=== PATIENT | female | born 1940 | race Two or more races ===

== ENCOUNTER 2020-11-01 16:35 | Emergency (ER) | payer MEDICARE, OTHER ==
[~2020-11-01] VITALS: Ht 162.6 cm; Wt 79.4 kg
[2020-11-01 18:49] VITALS: BP 148/59
[2020-11-01] MEDS ORDERED: ONDANSETRON ODT 4 MG TAB PO ONE ×2 (20:15→20:30)
[2020-11-01] MEDS ORDERED: ACETAMINOPHEN/CODEINE#3 (300/30mg) TAB PO ONE ×2 (20:15→20:30)
== END 2020-11-01 21:06 | disposition home or self-care (01) ==
LOC: ER 16:35
DX: S76.012A Strain of muscle, fascia and tendon of left hip, initial encounter (principal); M16.12 Unilateral primary osteoarthritis, left hip; I10 Essential (primary) hypertension; E78.5 Hyperlipidemia, unspecified; Z90.49 Acquired absence of other specified parts of digestive tract; M85.88 Other specified disorders of bone density and structure, other site; X58.XXXA Exposure to other specified factors, initial encounter; Y93.89 Activity, other specified; Y92.89 Other specified places as the place of occurrence of the external cause; Y99.8 Other external cause status
CPT/HCPCS: 73502; 99283; Q0162

== ENCOUNTER 2021-10-17 16:25 | Inpatient (IN) | payer MEDICARE, OTHER ==
[~2021-10-17] VITALS: Ht 162.6 cm; Wt 73.0 kg
[2021-10-18 00:38] LABS: Basophils # (auto) 0 10 ^3/uL (0-0.2); Basophils % (auto) 0.1 % (0.0-2.0); Eosinophils # (auto) 0 10 ^3/uL (0-0.8); Eosinophils % (auto) 0.1 % (0.0-7.0); Hematocrit 35.6 % (36.0-46.0); Hemoglobin 11.6 g/dL (12.2-16.2); Lymphocytes # (auto) 4.4 10 ^3/uL (0.4-5.4); Lymphocytes % (auto) 31.8 % (10.0-50.0); Mean Corpuscular Hemoglobin 29.5 pg (28.0-32.0); Mean Corpuscular Hgb Conc. 32.6 g/dL (32.0-36.0); Mean Corpuscular Volume 90.5 fL (80.0-100.0); Monocytes # (auto) 1.5 10 ^3/uL (0-1.3); Monocytes % (auto) 11.1 % (0.0-12.0); Neutrophils # (auto) 7.8 10 ^3/uL (1.6-8.6); Neutrophils % (auto) 56.9 % (37.0-80.0); Potassium 4.2 mmol/L (3.5-5.1); Red Blood Cells 3.94 10^6/uL (4.0-5.20); Red Cell Distribution Width 14.2 % (11.8-14.3); White Blood Cell 13.8 10^3/uL (4.4-10.8)
[2021-10-18 00:43] LABS: BUN/Creatinine Ratio 16.7; Calcium 8.2 mg/dL (8.5-10.1)
[2021-10-18 00:48] LABS: Bilirubin, Total 0.6 mg/dL (0.2-1.0)
[2021-10-18] MEDS ORDERED: ONDANSETRON HCL 4 MG/2 ML VIAL IV PRN (06:00)
[2021-10-18] MEDS ORDERED: NITROGLYCERIN 0.4 MG SL TAB SL PRN (06:00)
[2021-10-18] MEDS ORDERED: MORPHINE SULFATE INJECTION 2 MG/ML SYRG IV PRN (06:00)
[2021-10-18] MEDS ORDERED: TEMAZEPAM 15 MG CAP PO PRN (06:00)
[2021-10-18] MEDS ORDERED: ACETAMINOPHEN 500 MG TAB PO PRN (06:00)
[2021-10-18] MEDS: cefTRIAXone 1GM/50ML D5W 50 ML IV SCH (07:22)
[2021-10-18] MEDS: AZITHROMYCIN 500MG/ 250ML 250 ML IV SCH (07:58)
[2021-10-18 08:04] LABS: INR 1.1 (0.9-1.15)
[2021-10-18 08:27] LABS: Magnesium 2.3 mg/dL (1.6-2.6)
[2021-10-18 09:04] LABS: CRP High Sensitivity 16.3 mg/dL (< 0.3)
[2021-10-18] MEDS: ALBUTEROL SULF HFA 90MCG INH 200DOSE IN PRN ×2 (09:06→21:02)
[2021-10-18] MEDS: BUDESONIDE (INHALATION) 180 MCG IH IN SCH ×2 (09:07→21:02)
[2021-10-18] MEDS: ZINC SULFATE 220mg CAP or TAB PO SCH (10:52)
[2021-10-18] MEDS: DexAMETHasone SOD PHOS 10MG/1ML VIAL INJ IV SCH (10:52)
[2021-10-18] MEDS: amLODIPine BESYLATE 5 MG TAB PO SCH (10:52)
[2021-10-18] MEDS: PANTOPRAZOLE 40 MG TAB PO SCH (10:53)
[2021-10-18] MEDS: METOPROLOL SUCCINATE XL 50 MG TAB PO SCH (10:53)
[2021-10-18] MEDS: CHOLECALCIFEROL (VITD3) 2,000 UNIT CAP/TAB PO SCH (10:54)
[2021-10-18] MEDS: ASCORBIC ACID 1,000 MG TAB PO SCH (10:54)
[2021-10-18] MEDS: ENOXAPARIN SOD 30 MG/0.3 ML SYRINGE SC SCH (10:54)
[2021-10-18] MEDS: SODIUM CHLORIDE 0.9% 1,000 ML IV SCH (14:45)
[2021-10-18] MEDS: ATORVASTATIN 20 MG TAB PO SCH (22:14)
[2021-10-19 00:45] VITALS: BP 135/60
[2021-10-19 05:00] VITALS: BP 135/50
[2021-10-19] MEDS ORDERED: APIX5TAB PO (05:21)
[2021-10-19] MEDS ORDERED: OMEP-434 PO (05:21)
[2021-10-19] MEDS ORDERED: LOSA-39 PO (05:21)
[2021-10-19] MEDS ORDERED: CITA-77 PO (05:22)
[2021-10-19] MEDS ORDERED: ALEN35TA18 PO (05:22)
[2021-10-19] MEDS ORDERED: ATOR40TA52 PO (05:22)
[2021-10-19] MEDS ORDERED: AMLO-489 PO (05:22)
[2021-10-19] MEDS ORDERED: METO-159 PO (05:22)
[2021-10-19 05:46] LABS: Basophils # (auto) 0 10 ^3/uL (0-0.2); Basophils % (auto) 0.3 % (0.0-2.0); Eosinophils # (auto) 0 10 ^3/uL (0-0.8); Hemoglobin 9.6 g/dL (12.2-16.2); Lymphocytes % (auto) 16.9 % (10.0-50.0); Mean Corpuscular Hemoglobin 30.3 pg (28.0-32.0); Mean Corpuscular Hgb Conc. 34.3 g/dL (32.0-36.0); Mean Corpuscular Volume 88.3 fL (80.0-100.0); Monocytes # (auto) 0.7 10 ^3/uL (0-1.3); Monocytes % (auto) 12.3 % (0.0-12.0); Neutrophils # (auto) 4.1 10 ^3/uL (1.6-8.6); Neutrophils % (auto) 70.5 % (37.0-80.0); Nucleated Red Blood Cells % 0.1 %; Red Blood Cells 3.17 10^6/uL (4.0-5.20); Red Cell Distribution Width 14.3 % (11.8-14.3); White Blood Cell 5.8 10^3/uL (4.4-10.8)
[2021-10-19 06:38] LABS: Potassium 4.9 mmol/L (3.5-5.1)
[2021-10-19 06:46] LABS: Albumin 2.5 g/dL (3.4-5.0); BUN/Creatinine Ratio 29.8; Bilirubin, Total 0.4 mg/dL (0.2-1.0); Calcium 7.6 mg/dL (8.5-10.1); Total Protein 5.1 g/dL (6.4-8.2)
[2021-10-19 09:00] VITALS: BP 147/54
[2021-10-19] MEDS: cefTRIAXone 1GM/50ML D5W 50 ML IV SCH (09:23)
[2021-10-19] MEDS: ENOXAPARIN SOD 30 MG/0.3 ML SYRINGE SC SCH (09:24)
[2021-10-19] MEDS: PANTOPRAZOLE 40 MG TAB PO SCH (09:24)
[2021-10-19] MEDS: ASCORBIC ACID 1,000 MG TAB PO SCH (09:24)
[2021-10-19] MEDS: DexAMETHasone SOD PHOS 10MG/1ML VIAL INJ IV SCH (09:24)
[2021-10-19] MEDS: AZITHROMYCIN 500MG/ 250ML 250 ML IV SCH (09:25)
[2021-10-19] MEDS: ZINC SULFATE 220mg CAP or TAB PO SCH (09:25)
[2021-10-19] MEDS: CHOLECALCIFEROL (VITD3) 2,000 UNIT CAP/TAB PO SCH (09:25)
[2021-10-19] MEDS: amLODIPine BESYLATE 5 MG TAB PO SCH (09:26)
[2021-10-19] MEDS: METOPROLOL SUCCINATE XL 50 MG TAB PO SCH (09:26)
[2021-10-19] MEDS: BUDESONIDE (INHALATION) 180 MCG IH IN SCH ×2 (10:00→20:12)
[2021-10-19] MEDS: SODIUM CHLORIDE 0.9% 1,000 ML IV SCH (10:15)
[2021-10-19] MEDS: ALBUTEROL SULF HFA 90MCG INH 200DOSE IN PRN ×2 (11:10→20:12)
[2021-10-19 13:00] VITALS: BP 133/56
[2021-10-19] MEDS ORDERED: REMDESIVIR PER PHARMACY 0 ML IV SCH (15:00)
[2021-10-19 17:00] VITALS: BP 137/54
[2021-10-19] MEDS ORDERED: REMDESIVIR 200 MG in NS 210ml LOADING DOSE ADULT IV ONE (17:00)
[2021-10-19] MEDS: ATORVASTATIN 20 MG TAB PO SCH (21:15)
[2021-10-19 22:18] VITALS: BP 106/55
[2021-10-20 04:53] VITALS: BP 125/47
[2021-10-20] MEDS: SODIUM CHLORIDE 0.9% 1,000 ML IV SCH (06:15)
[2021-10-20 08:41] LABS: Potassium 4.6 mmol/L (3.5-5.1)
[2021-10-20 09:00] VITALS: BP 123/92
[2021-10-20 09:18] LABS: Albumin 2.3 g/dL (3.4-5.0); BUN/Creatinine Ratio 33.6; Bilirubin, Total 0.3 mg/dL (0.2-1.0); Calcium 7.8 mg/dL (8.5-10.1); Total Protein 5.3 g/dL (6.4-8.2)
[2021-10-20] MEDS: BUDESONIDE (INHALATION) 180 MCG IH IN SCH ×2 (10:09→20:16)
[2021-10-20] MEDS: ALBUTEROL SULF HFA 90MCG INH 200DOSE IN PRN ×2 (10:09→20:16)
[2021-10-20] MEDS: cefTRIAXone 1GM/50ML D5W 50 ML IV SCH (10:13)
[2021-10-20] MEDS: AZITHROMYCIN 500MG/ 250ML 250 ML IV SCH (10:13)
[2021-10-20] MEDS: ZINC SULFATE 220mg CAP or TAB PO SCH (10:13)
[2021-10-20] MEDS: ENOXAPARIN SOD 30 MG/0.3 ML SYRINGE SC SCH (10:14)
[2021-10-20] MEDS: PANTOPRAZOLE 40 MG TAB PO SCH (10:14)
[2021-10-20] MEDS: CHOLECALCIFEROL (VITD3) 2,000 UNIT CAP/TAB PO SCH (10:14)
[2021-10-20] MEDS: ASCORBIC ACID 1,000 MG TAB PO SCH (10:14)
[2021-10-20] MEDS: DexAMETHasone SOD PHOS 10MG/1ML VIAL INJ IV SCH (10:15)
[2021-10-20] MEDS: amLODIPine BESYLATE 5 MG TAB PO SCH (10:15)
[2021-10-20] MEDS: METOPROLOL SUCCINATE XL 50 MG TAB PO SCH (10:16)
[2021-10-20 13:00] VITALS: BP 150/52
[2021-10-20 14:45] VITALS: BP 123/92
[2021-10-20] MEDS ORDERED: REMDESIVIR 100mg 100 MG in SODIUM CHL 0.9% 230 ML IV SCH (15:00)
[2021-10-20 17:00] VITALS: BP 143/51
[2021-10-20] MEDS: ATORVASTATIN 20 MG TAB PO SCH (20:20)
[2021-10-20 22:00] VITALS: BP 144/73
[2021-10-21] MEDS: SODIUM CHLORIDE 0.9% 1,000 ML IV SCH ×2 (02:14→22:15)
[2021-10-21 04:44] VITALS: BP 129/57
[2021-10-21 06:58] LABS: Albumin 2.2 g/dL (3.4-5.0); Potassium 4.8 mmol/L (3.5-5.1)
[2021-10-21 07:01] LABS: BUN/Creatinine Ratio 33.1; Calcium 8.1 mg/dL (8.5-10.1)
[2021-10-21 07:12] LABS: Bilirubin, Total 0.3 mg/dL (0.2-1.0); Total Protein 4.6 g/dL (6.4-8.2)
[2021-10-21] MEDS: ALBUTEROL SULF HFA 90MCG INH 200DOSE IN PRN ×2 (08:03→20:58)
[2021-10-21] MEDS: BUDESONIDE (INHALATION) 180 MCG IH IN SCH ×2 (08:03→20:58)
[2021-10-21 09:00] VITALS: BP 166/73
[2021-10-21] MEDS: cefTRIAXone 1GM/50ML D5W 50 ML IV SCH (09:00)
[2021-10-21] MEDS: amLODIPine BESYLATE 5 MG TAB PO SCH (09:45)
[2021-10-21] MEDS: ZINC SULFATE 220mg CAP or TAB PO SCH (09:45)
[2021-10-21] MEDS: DexAMETHasone SOD PHOS 10MG/1ML VIAL INJ IV SCH (09:45)
[2021-10-21] MEDS: METOPROLOL SUCCINATE XL 50 MG TAB PO SCH (09:46)
[2021-10-21] MEDS: CHOLECALCIFEROL (VITD3) 2,000 UNIT CAP/TAB PO SCH (09:46)
[2021-10-21] MEDS: PANTOPRAZOLE 40 MG TAB PO SCH (09:46)
[2021-10-21] MEDS: ASCORBIC ACID 1,000 MG TAB PO SCH (09:46)
[2021-10-21] MEDS: AZITHROMYCIN 500MG/ 250ML 250 ML IV SCH (10:20)
[2021-10-21] MEDS: ENOXAPARIN SOD 30 MG/0.3 ML SYRINGE SC SCH (10:21)
[2021-10-21 13:00] VITALS: BP 145/50
[2021-10-21 17:00] VITALS: BP 141/57
[2021-10-21] MEDS: ATORVASTATIN 20 MG TAB PO SCH (19:40)
[2021-10-21 22:00] VITALS: BP 139/71
[2021-10-22 06:45] LABS: Potassium 4.6 mmol/L (3.5-5.1)
[2021-10-22 07:00] LABS: Albumin 2.4 g/dL (3.4-5.0); BUN/Creatinine Ratio 31.1; Bilirubin, Total 0.3 mg/dL (0.2-1.0); CRP High Sensitivity 1.2 mg/dL (< 0.3); Total Protein 4.8 g/dL (6.4-8.2)
[2021-10-22 07:24] LABS: Basophils # (auto) 0 10 ^3/uL (0-0.2); Basophils % (auto) 0.2 % (0.0-2.0); Eosinophils # (auto) 0 10 ^3/uL (0-0.8); Hematocrit 27.1 % (36.0-46.0); Hemoglobin 9.2 g/dL (12.2-16.2); Lymphocytes # (auto) 0.8 10 ^3/uL (0.4-5.4); Lymphocytes % (auto) 12.7 % (10.0-50.0); Mean Corpuscular Hemoglobin 30.3 pg (28.0-32.0); Mean Corpuscular Hgb Conc. 34.1 g/dL (32.0-36.0); Mean Corpuscular Volume 88.7 fL (80.0-100.0); Monocytes % (auto) 16.7 % (0.0-12.0); Neutrophils # (auto) 4.4 10 ^3/uL (1.6-8.6); Neutrophils % (auto) 70.4 % (37.0-80.0); Nucleated Red Blood Cells % 0.1 %; Red Blood Cells 3.05 10^6/uL (4.0-5.20); Red Cell Distribution Width 14.2 % (11.8-14.3); White Blood Cell 6.2 10^3/uL (4.4-10.8)
[2021-10-22] MEDS: cefTRIAXone 1GM/50ML D5W 50 ML IV SCH ×2 (08:30→09:03)
[2021-10-22 08:38] VITALS: BP 159/55
[2021-10-22] MEDS: BUDESONIDE (INHALATION) 180 MCG IH IN SCH ×2 (10:00→17:59)
[2021-10-22] MEDS: AZITHROMYCIN 500MG/ 250ML 250 ML IV SCH (10:00)
[2021-10-22] MEDS: ENOXAPARIN SOD 30 MG/0.3 ML SYRINGE SC SCH (10:00)
[2021-10-22] MEDS: ASCORBIC ACID 1,000 MG TAB PO SCH (10:37)
[2021-10-22] MEDS: ZINC SULFATE 220mg CAP or TAB PO SCH (10:37)
[2021-10-22] MEDS: PANTOPRAZOLE 40 MG TAB PO SCH (10:38)
[2021-10-22] MEDS: CHOLECALCIFEROL (VITD3) 2,000 UNIT CAP/TAB PO SCH (10:38)
[2021-10-22] MEDS: amLODIPine BESYLATE 5 MG TAB PO SCH (10:38)
[2021-10-22] MEDS: METOPROLOL SUCCINATE XL 50 MG TAB PO SCH (10:39)
[2021-10-22] MEDS: DexAMETHasone SOD PHOS 10MG/1ML VIAL INJ IV SCH (10:40)
[2021-10-22] MEDS: ALBUTEROL SULF HFA 90MCG INH 200DOSE IN PRN ×2 (10:56→17:59)
[2021-10-22 13:00] VITALS: BP 159/57
[2021-10-22 17:00] VITALS: BP 172/59
[2021-10-22] MEDS: ATORVASTATIN 20 MG TAB PO SCH (21:28)
[2021-10-22 22:00] VITALS: BP_SYST 129; BP_SYST 170; BP_DIAS 66; BP_DIAS 83
[2021-10-23 06:00] VITALS: BP_SYST 149; BP_SYST 153; BP_DIAS 66; BP_DIAS 74
[2021-10-23] MEDS: ALBUTEROL SULF HFA 90MCG INH 200DOSE IN PRN (06:14)
[2021-10-23] MEDS: BUDESONIDE (INHALATION) 180 MCG IH IN SCH (06:14)
[2021-10-23 07:04] LABS: Hematocrit 27.5 % (36.0-46.0); Hemoglobin 9.4 g/dL (12.2-16.2); Mean Corpuscular Hemoglobin 30.2 pg (28.0-32.0); Mean Corpuscular Hgb Conc. 34.2 g/dL (32.0-36.0); Mean Corpuscular Volume 88.3 fL (80.0-100.0); Red Blood Cells 3.12 10^6/uL (4.0-5.20); Red Cell Distribution Width 14.1 % (11.8-14.3); White Blood Cell 7.4 10^3/uL (4.4-10.8)
[2021-10-23 07:07] LABS: Basophils % (manual) 0 (0.0-2.0); Blast Cells 0; Eosinophils % (manual) 0 (0-7); Myelocytes % 0; Promyelocytes % 0; Reactive Lymphocytes 0
[2021-10-23 07:26] LABS: Potassium 4.7 mmol/L (3.5-5.1)
[2021-10-23 07:33] LABS: Albumin 2.5 g/dL (3.4-5.0); BUN/Creatinine Ratio 30.1; Bilirubin, Total 0.4 mg/dL (0.2-1.0); Calcium 8.1 mg/dL (8.5-10.1); Total Protein 4.6 g/dL (6.4-8.2)
[2021-10-23 07:39] LABS: Band Neutrophils % (manual) 1; Lymphocytes % (manual) 14 (10.0-50.0); Metamyelocytes % 1; Monocytes % (manual) 19 (0-12)
[2021-10-23] MEDS: METOPROLOL SUCCINATE XL 50 MG TAB PO SCH (10:00)
[2021-10-23] MEDS: ENOXAPARIN SOD 30 MG/0.3 ML SYRINGE SC SCH (10:00)
[2021-10-23] MEDS: amLODIPine BESYLATE 5 MG TAB PO SCH (10:49)
[2021-10-23] MEDS: ASCORBIC ACID 1,000 MG TAB PO SCH (10:50)
[2021-10-23] MEDS: CHOLECALCIFEROL (VITD3) 2,000 UNIT CAP/TAB PO SCH (10:50)
[2021-10-23] MEDS: PANTOPRAZOLE 40 MG TAB PO SCH (10:51)
[2021-10-23] MEDS: DexAMETHasone SOD PHOS 10MG/1ML VIAL INJ IV SCH (10:51)
[2021-10-23] MEDS: ZINC SULFATE 220mg CAP or TAB PO SCH (10:51)
[2021-10-23] MEDS ORDERED: ZINC220C10 PO (14:10)
[2021-10-23] MEDS ORDERED: CHOL20007 OR (14:10)
[2021-10-23] MEDS ORDERED: ASCO500T11 PO (14:10)
[2021-10-23] MEDS ORDERED: DEX4T PO (14:10)
== END 2021-10-23 18:15 | disposition home or self-care (01) | DRG 177 ==
LOC: ER 16:29 → TELE 10-18 06:04 → TELE-EAST 10-18 23:26
PROVIDERS: ADMIT Nurse Practitioner; ATTEND Internal Medicine Geriatric Medicine
PROC: XW033E5 Introduction of Remdesivir Anti-infective into Peripheral Vein, Percutaneous Approach, New Technology Group 5 (ICD-10-PCS; principal; 2021-10-19)
DX: U07.1 COVID-19 (principal); J12.82 Pneumonia due to coronavirus disease 2019; J96.01 Acute respiratory failure with hypoxia; J98.11 Atelectasis; N17.9 Acute kidney failure, unspecified; E78.5 Hyperlipidemia, unspecified; K52.9 Noninfective gastroenteritis and colitis, unspecified; R53.81 Other malaise; I10 Essential (primary) hypertension; Z86.73 Personal history of transient ischemic attack (TIA), and cerebral infarction without residual deficits; Z90.49 Acquired absence of other specified parts of digestive tract
CPT/HCPCS: 36415; 71045; 80053; 82728; 83605; 83615; 83735; 83880; 84443; 84484; 85007; 85025; 85027; 85379; 85610; 85730; 86141; 87081; 87426; 93005; 94640; 96365; 96367; G0378; J0696; J1100

== ENCOUNTER 2025-09-06 11:50 | Inpatient (IN) | payer OTHER, MEDICAID ==
[~2025-09-06] VITALS: Ht 154.9 cm; Wt 70.7 kg
[~2025-09-06 11:50] MED LIST: ALEN35TA18 PO; AMLO1TAB22 PO; APIX5TAB PO; ASCO500T11 PO; ATOR40TA52 PO; CHOL20007 OR; CITA-77 PO; DEX4T PO; LOSA-535 PO; METO-159 PO; OMEP-434 PO; ZINC220C10 PO
--- NOTE | 2025-09-06 13:07 | ED.PDOC ---
HPI (NEURO) HPI Comments 84-year-old female with a presented to the ED with chief complaint of dizziness. Patient was brought in by daughter today for for dizziness elevated blood pressure at home, lethargy and headache for the past one day. Patient's daughter otherwise states that patient is also moving slower than normal. Patient does wear oxygen at home and has been on oxygen all day yesterday and today. Patient normally wears oxygen only at night during sleeping. Patient in the ED noted to be placed on 2 L oxygen per nasal cannula and is now satting at 96%. Patient in the ED otherwise has noted stroke with a right-sided deficits. Patient otherwise denies any other symptoms. Chief Complaint: Dizziness Time Seen by MD: 13:05 Primary Care Provider: JANICE Reviewed Notes: Medications, Allergies Information Source: Patient, Relative Mode of Arrival: Ambulatory Brought in by: Daughter Severity: Moderate Dizziness/Weakness Severity: Unable to do activities Past Medical History PAST MEDICAL HISTORY: CVA, High Lipids, HTN, Denies Surgical History: Cholecystectomy PERSONNEL PSYCHOLOGIST History: No Pertinent PERSONNEL PSYCHOLOGIST History Family History Family History: Reviewed,noncontributory to illness, Unknown Social History Smoker: Non-Smoker Alcohol: Denies ETOH Use Drugs: Denies Drug Use Lives In: Home Constitutional: reports: malaise, weakness; denies: chills, diaphoresis, fatigue, fever, sweats, others EENTM: denies: blurred vision, double vision, ear bleeding, ear discharge, ear drainage, ear pain, ear ringing, eye pain, eye redness, hearing loss, mouth pain, mouth swelling, nasal discharge, nose bleeding, nose congestion, nose pain, photophobia, tearing, throat pain, throat swelling, voice changes, others Respiratory: denies: cough, hemoptysis, orthopnea, SOB at rest, shortness of breath, SOB with excertion, stridor, wheezing, others Cardiovascular: denies: chest pain, dizzy spells, diaphoresis, Dyspnea on exertion, edema, irregular heart beat, left arm pain, lightheadedness, palp itations, PND, syncope, others Gastrointestinal: denies: abdomen distended, abdominal pain, blood streaked bowels, constipated, diarrhea, dysphagia, difficulty swallowing, hematemesis, melena, nausea, poor appetite, poor fluid intake, rectal bleeding, rectal pain, vomiting, others Genitourinary: denies: abnormal vagina bleeding, burning, dyspareunia, dysuria, flank pain, frequency, hematuria, incontinence, pain, , vagina discharge, urgency, others Neurological: reports: dizziness, headache, weakness; denies: fainting, left sided numbness, left sided weakness, numbness, paresthesia, pre-existing deficit, right sided numbness, right sided weakness, seizure, speech problems, tingling, tremors, others Musculoskeletal: denies: back pain, gout, joint pain, joint swelling, muscle pain, muscle stiffness, neck pain, others Integumetry: denies: bruises, change in color, change in hair/nails, dryness, laceration, lesions, lumps, rash, wounds, others Allergic/Immunocompromised: denies: Difficulty Healing, Frequent Infections, Hives, Itching, others Hematologic/Lymphatic: denies: anemia, blood clots, easy bleeding, easy bruising, swollen glands, others Endocrine: denies: excessive hunger, excessive sweating, excessive thirst, excessive urination, flushing, intolerance to cold, intolerance to heat, unexplained weight gain, unexplained weight loss, others Psychiatric: denies: anxiety, bipolar disorder, depression, hopeless, panic disorder, schizophrenia, sleepless, suicidal, others All Other Systems: Reviewed and Negative Physical Exam General Appearance: No Apparent Distress, Normal HEENT: Normal ENT Inspection, Pharynx Normal, TMs Normal Neck: Full Range of Motion, Non-Tender, Normal, Normal Inspection Respiratory: Chest Non-Tender, Lungs Clear, No Accessory Muscle Use, No Respiratory Distress, Normal Breath Sounds Cardiovascular: No Edema, No JVD, No Murmur, No Gallop, Normal Peripheral Pulses, Regular Rate/Rhythm Breast Exam: Deferred Gastrointestinal: No Organomegaly, Non Tender, No Pulsatile Mass, Normal Bowel Sounds, Soft Genitalia: Deferred Pelvic: Deferred Rectal: Deferred Extremities: No calf tenderness, Normal capillary refill, Normal inspection, Normal range of motion, Non-tender, No pedal edema Musculoskeletal : Apperance: Normal Neurologic: Alert, sound printer II-XII nml as Tested, No Motor Deficits, Normal Affect, Normal Mood, No Sensory Deficits Cerebellar Function: Normal Reflexes: Normal Skin: Dry, Normal Color, Warm Lymphatic: No Adenopathy Was a procedure done? Was a procedure done?: No Differential Diagnosis (SZ) General Weakness: Anemia, Dehydration, Electrolyte imbalance, Encephalopathy, Hypoglycemia, Hypotension, Hypovolemia, TIA, Vertigo: central, Vertigo: peripheral, Other (COVID 19, influenza a and B, urinalysis, sepsis, metabolic encephalopathy) X-Ray, Labs, Meds, VS Vital Signs Date Time Temp Pulse Resp B/P (MAP) Pulse Ox O2 Delivery O2 Flow Rate FiO2 09/06/25 15:16 97.8 67 18 138/63 (88) 98 97.8 09/06/25 13:24 77 19 98 Nasal Cannula 09/06/25 13:24 97.9 77 19 164/61 (95) 98 97.9 09/06/25 12:17 61 09/06/25 11:51 97.4 65 18 161/83 94 97.4 Lab Test 09/06/25 16:42 09/06/25 16:21 09/06/25 15:16 09/06/25 13:39 Range/Units Urine Color Light-yellow Yellow Urine Clarity Clear Clear Urine pH 5.5 5.0-9.0 Urine Specific [place] 1.010 1.001-1.035 Urine Protein 1+ H Negative Urine Ketones Negative Negative Urine Blood Negative Negative /uL Urine Nitrite Negative Negative Urine Bilirubin Negative Negative Urine Urobilinogen Normal Negative mg/dL Urine Leukocyte Esterase 1+ Negative /uL Urine RBC <1 0 - 4 /hpf Urine Microscopic WBC 5 0-5 /HPF Urine Squamous Epithelial Cells Few <5 /hpf Urine Bacteria Few H None Seen /hpf Urine Glucose Normal Normal mg/dL Influenza Type A Antigen Pending Influenza Type B Antigen Pending SARS-CoV-2 Antigen (Rapid) Pending Troponin I High Sensitivity 11 13 11 </=34 ng/L White Blood Count 7.9 4.4-10.8 10^3/uL Red Blood Count 3.62 L 4.0-5.20 10^6/uL Hemoglobin 11.6 L 12.2-16.2 g/dL Hematocrit 34.2 L 36.0-46.0 % Mean Corpuscular Volume 94.6 80.0-100.0 fL Mean Corpuscular Hemoglobin 32.1 H 28.0-32.0 pg Mean Corpuscular Hemoglobin Concent 34.0 32.0-36.0 g/dL Red Cell Distribution Width 14.5 H 11.8-14.3 % Platelet Count 286 140-450 10^3/uL Mean Platelet Volume 8.7 6.9-10.8 fL Neutrophils (%) (Auto) 51.8 37.0-80.0 % Lymphocytes (%) (Auto) 31.0 10.0-50.0 % Monocytes (%) (Auto) 12.3 H 0.0-12.0 % Eosinophils (%) (Auto) 4.5 0.0-7.0 % Basophils (%) (Auto) 0.4 0.0-2.0 % Neutrophils # (Auto) 4.1 1.6-8.6 10 ^3/uL Lymphocytes # (Auto) 2.4 0.4-5.4 10 ^3/uL Monocytes # (Auto) 1.0 0-1.3 10 ^3/uL Eosinophils # (Auto) 0.4 0-0.8 10 ^3/uL Basophils # (Auto) 0 0-0.2 10 ^3/uL Nucleated Red Blood Cells 0.0 % Sodium Level 143 136-145 mmol/L Potassium Level 5.0 3.5-5.1 mmol/L Chloride Level 111 H 98-107 mmol/L Carbon Dioxide Level 23 20-31 mmol/L Anion Gap 9 5-15 Blood Urea Nitrogen 23 9-23 mg/dL Creatinine 1.65 H 0.550-1.02 mg/dL Glomerular Filtration Rate Calc 31 >90 mL/min BUN/Creatinine Ratio 13.9 10.0-20.0 Serum Glucose 79 74-106 mg/dL Lactic Acid Level 2.0 0.4-2.0 mmol/L Calcium Level 8.8 8.7-10.4 mg/dL B-Type Natriuretic Peptide 579.44 0-100 pg/mL Test 09/06/25 12:19 Range/Units POC Glucose 106 70-106 mg/dl Current Medications Medications (Trade) Dose Ordered Sig/Keven Route Start Time Stop Time Status Last Admin Sodium Chloride 1,000 ml @ 1,000 mls/hr Q1H ONCE IV 09/06/25 13:00 09/06/25 13:59 DC 09/06/25 13:[address] [address] Ph: [phone] DIAGNOSTIC IMAGING Diagnostic Imaging Report : [id number] Signed PATIENT: MYRON CHOUDHURY ACCT: [id number] UNIT: [id number] : 1940 LOC: ER ROOM / BED: / AGE / SEX: 84 / F ADM STATUS: REG ER SERVICE ORDERING PHYSICIAN: REBECA CHANCE MD PROCEDURE(s): HWOCT - HEAD WITHOUT CONTRAST REASON: altered ORDER NUMBER(s): [id number], ACCESSION NUMBER(s): [id number] CLINICAL HISTORY: altered TECHNIQUE: Helical scanning was performed of the head from the skull base to the vertex. Multiplanar reconstructions were performed. This exam was performed according to our departmental dose optimization program. Up-to-date CT equipment and radiation dose reduction techniques are utilized as appropriate. CTDI 54 DLP 1070 COMPARISON: None FINDINGS: There is no evidence for acute intracranial hemorrhage, acute ischemic changes, mass, mass effect, or extra-axial fluid collection. There is no hydrocephalus or midline shift. There is no effacement of the cerebral sulci and basal subarachnoid cisterns. The romo-white matter differentiation is well maintained. Scattered white matter hypoattenuation is most compatible with a mild burden of nonspecific chronic small vessel ischemic change. There is an old left parietal lobe infarct. There is a small old right superior cerebellar infarct. There are old bilateral basal ganglia lacunar infarcts. There is a small right mastoid effusion. IMPRESSION: No acute intracranial abnormality seen. Old left parietal lobe infarct. Old right superior cerebellar infarct. Old bilateral basal ganglia lacunar infarct. Small right mastoid effusion. ATED BY: AALIYAH SANTOS MD DICTATED DATE/TIME: 09/06/251345 SIGNED BY: AALIYAH SANTOS MD SIGNED DATE/TIME: 09/06/25 134 CC: [place] [id number] Ph: [phone] DIAGNOSTIC IMAGING Diagnostic Imaging Report : [id number] Signed PATIENT: MYRON CHOUDHURY ACCT: [id number] UNIT: [id number] : 1940 LOC: ER ROOM / BED: / AGE / SEX: 84 / F ADM STATUS: REG ER SERVICE [id number] ORDERING PHYSICIAN: REBECA CHANCE MD PROCEDURE(s): CXRP - CHEST PORTABLE REASON: r/o pna ORDER NUMBER(s): [id number], ACCESSION NUMBER(s): [id number] INDICATION: r/o pna TECHNIQUE: Frontal view of the chest. COMPARISON: CHEST PORTABLE on DOS: 10/22/21, CHEST PORTABLE on DOS: 10/19/21, CHEST PORTABLE on DOS: 10/17/21 FINDINGS: Cardiomegaly. The heart and mediastinal contours are grossly unremarkable. There is no evidence of pleural disease. The lungs are clear. The bony structures of the chest are intact without fracture. IMPRESSION: 1. Cardiomegaly with CHF. ATED BY: ROMINA LIRIANO MD DICTATED DATE/TIME: 09/06/25 133 SIGNED BY: ROMINA LIRIANO MD SIGNED DATE/TIME: 09/06/25 1339 CC: X-Ray, Labs, Meds, VS Comment 84-year-old female here today with the complaints of dizziness with a extensive medical history as above. Vital signs with evidence of mild hypertension but otherwise unremarkable. Workup notable for evidence of UTI for which the patient was started on ceftriaxone without evidence of sepsis. CT scan with evidence of prior strokes but no new acute findings. Plan made to admit the patient for further telemetry monitoring and workup of her dizziness. Images Reviewed?: Images reviewed and evaluated by me Time of 1ST Reevaluation: 13:35 Reevaluation 1ST: Unchanged Time of 2ND Reevaluation: 18:50 Reevaluation 2ND: Improved Patient Education/Counseling: Diagnosis, Treatment Family Education/Counseling: Diagnosis, Treatment Departure 1 Departure Time of Disposition: 18:50 Impression: Primary Impression: UTI (urinary tract infection) Additional Impressions: Autonomic instability History of stroke Disposition: ADMITTED INPATIENT Admit to: [facility] Condition: Guarded Critical Care Note Critical Care Time?: Yes (35 min-critical care time only) Stability Stability form required: No Heart Score Heart Score: Heart Score Response (Comments) Value History N/A 0 EKG N/A 0 Age N/A 0 Risk Factors N/A 0 Troponin N/A 0 Total 0 I personally scribed for REBECA CHANCE MD ([facility]) on 09/06/25 at 13:07. Elec tronically submitted by Santos Cooper ([facility] I personally scribed for REBECA CHANCE MD ([facility]) on 09/06/25 at 14:46. Electronically submitted by Santos Cooper ([facility] REBECA CHANCE MD Sep 06, 2025 13:07
[2025-09-06] MEDS: SODIUM CHLORIDE 0.9% 1,000 ML IV ONE (13:40)
--- NOTE | 2025-09-06 13:41 | DVH ---
INDICATION: r/o pna TECHNIQUE: Frontal view of the chest. COMPARISON: CHEST PORTABLE on DOS: 10/22/21, CHEST PORTABLE on DOS: 10/19/21, CHEST PORTABLE on DOS: 10/17/21 FINDINGS: Cardiomegaly. The heart and mediastinal contours are grossly unremarkable. There is no evidence of pleural disease. The lungs are clear. The bony structures of the chest are intact without fracture. IMPRESSION: 1. Cardiomegaly with CHF.
--- NOTE | 2025-09-06 13:49 | DVH ---
CLINICAL HISTORY: altered TECHNIQUE: Helical scanning was performed of the head from the skull base to the vertex. Multiplanar reconstructions were performed. This exam was performed according to our departmental dose optimization program. Up-to-date CT equipment and radiation dose reduction techniques are utilized as appropriate. CTDI 54 DLP 1070 COMPARISON: None FINDINGS: There is no evidence for acute intracranial hemorrhage, acute ischemic changes, mass, mass effect, or extra-axial fluid collection. There is no hydrocephalus or midline shift. There is no effacement of the cerebral sulci and basal subarachnoid cisterns. The romo-white matter differentiation is well maintained. Scattered white matter hypoattenuation is most compatible with a mild burden of nonspecific chronic small vessel ischemic change. There is an old left parietal lobe infarct. There is a small old right superior cerebellar infarct. There are old bilateral basal ganglia lacunar infarcts. There is a small right mastoid effusion. IMPRESSION: No acute intracranial abnormality seen. Old left parietal lobe infarct. Old right superior cerebellar infarct. Old bilateral basal ganglia lacunar infarct. Small right mastoid effusion.
[2025-09-06 13:58] LABS: Hematocrit 34.2 % (36.0-46.0); Hemoglobin 11.6 g/dL (12.2-16.2); Mean Corpuscular Hemoglobin 32.1 pg (28.0-32.0); Mean Corpuscular Volume 94.6 fL (80.0-100.0); Nucleated Red Blood Cells % 0.0 %
[2025-09-06 14:54] LABS: Potassium 5.0 mmol/L (3.5-5.1); Sodium 143 mmol/L (136-145)
[2025-09-06 14:55] LABS: Anion Gap 9 (5-15); Carbon Dioxide 23 mmol/L (20-31)
[2025-09-06 14:56] LABS: Calcium 8.8 mg/dL (8.7-10.4)
[2025-09-06 15:00] LABS: BUN/Creatinine Ratio 13.9 (10.0-20.0); Blood Urea Nitrogen 23 mg/dL (9-23); Glucose 79 mg/dL (74-106)
[2025-09-06 15:02] LABS: Chloride 111 mmol/L (98-107)
[2025-09-06 18:22] LABS: Urine Protein, UAD 1+ (Negative)
[2025-09-06 19:08] LABS: COVID19 ANTIGEN SOFIA FIA NEGATIVE (NEGATIVE)
[2025-09-06] MEDS ORDERED: ACETAMINOPHEN 325 MG TAB PO PRN (19:15)
[2025-09-06] MEDS ORDERED: MECLIZINE HCL 25 MG TAB PO PRN (19:15)
[2025-09-06] MEDS ORDERED: ONDANSETRON HCL 4 MG/2 ML VIAL IV PRN (19:15)
--- NOTE | 2025-09-06 21:39 | DVHHP2 ---
History of Present Illness Reason for Visit: Dizziness History of Present Illness 84-year-old female presents for evaluation of dizziness. Patient reports a two day history of dizziness with associated headache. Family checked her blood pressure and it was reading in the 180s since yesterday. Denies chest pain or palpitations. She also reports feeling off balance. No unilateral weakness or slurred speech. Past Medical History Hypertension, dyslipidemia, CVA with right-sided Past Surgical History Cholecystectomy Family History Noncontributory Smoke: No ALCOHOL: none Drugs: None Lives: with Family Review of Systems Review of Systems Review of systems are currently negative otherwise addressed in HPI. Allergies: Coded Allergies: NO KNOWN ALLERGIES (Unverified , 11/01/20) Medications Current Medications Medications Dose Ordered Sig/Keven Route Start Time Stop Time Status Last Admin Dose Admin Meclizine HCl 25 mg Q6HPRN PRN PO 09/06/25 19:15 Atorvastatin Calcium 40 mg HS PO 09/06/25 22:00 Amlodipine Besylate 5 mg DAILY PO 09/07/25 10:00 Apixaban 5 mg BID PO 09/06/25 22:00 UNV Metoprolol Succinate 50 mg DAILY PO 09/07/25 10:00 Losartan Potassium 50 mg DAILY PO 09/07/25 10:00 Ceftriaxone Sodium 50 ml @ 100 mls/hr DAILY@09 IV 09/07/25 09:00 Ondansetron HCl 4 mg Q4HP PRN IV 09/06/25 19:15 Acetaminophen 650 mg Q6HP PRN PO 09/06/25 19:15 Clonidine HCl 0.1 mg Q6HP PRN PO 09/06/25 21:30 Exam Vital Signs Vital Signs Date Time Temp Pulse Resp B/P (MAP) Pulse Ox O2 Delivery O2 Flow Rate FiO2 09/06/25 20:03 98.3 58 19 167/72 (103) 100 98.3 09/06/25 13:24 Nasal Cannula Exam Gen: 84-year-old female in mild distress. Skin: Warm, dry, normal color and texture, no rash. HEENT: Normocephalic atraumatic, mucous membranes moist and pink. Neck: Cervical and supraclavicular nodes normal without enlargement, trachea is midline, thyroid gland is normal without masses. Pulmonary: Clear to auscultation and percussion bilaterally. Cardiac: Regular rate and rhythm. No murmur Abdomen: Soft, nontender, nondistended, bowel sounds present all 4 quadrants, no guarding, no rigidity, no organomegaly. Extremities: No cyanosis, clubbing, no edema Neuro: Cranial nerves II through XII grossly intact, normal affect and speech, no focal motor deficits. Labs/Xrays ORDERING PHYSICIAN: REBECA CHANCE MD PROCEDURE(s): CXRP - CHEST PORTABLE REASON: r/o pna ORDER NUMBER(s): [id number], ACCESSION NUMBER(s): [id number] INDICATION: r/o pna TECHNIQUE: Frontal view of the chest. COMPARISON: CHEST PORTABLE on DOS: 10/22/21, CHEST PORTABLE on DOS: 10/19/21, CHEST PORTABLE on DOS: 10/17/21 FINDINGS: Cardiomegaly. The heart and mediastinal contours are grossly unremarkable. There is no evidence of pleural disease. The lungs are clear. The bony structures of the chest are intact without fracture. IMPRESSION: 1. Cardiomegaly with CHF. RING PHYSICIAN: REBECA CHANCE MD PROCEDURE(s): HWOCT - HEAD WITHOUT CONTRAST REASON: altered ORDER NUMBER(s): [id number], ACCESSION NUMBER(s): [id number] CLINICAL HISTORY: altered TECHNIQUE: Helical scanning was performed of the head from the skull base to the vertex. Multiplanar reconstructions were performed. This exam was performed according to our departmental dose optimization program. Up-to-date CT equipment and radiation dose reduction techniques are utilized as appropriate. CTDI 54 DLP 1070 COMPARISON: None FINDINGS: There is no evidence for acute intracranial hemorrhage, acute ischemic changes, mass, mass effect, or extra-axial fluid collection. There is no hydrocephalus or midline shift. There is no effacement of the cerebral sulci and basal subarachnoid cisterns. The romo-white matter differentiation is well maintained. Scattered white matter hypoattenuation is most compatible with a mild burden of nonspecific chronic small vessel ischemic change. There is an old left parietal lobe infarct. There is a small old right superior cerebellar infarct. There are old bilateral basal ganglia lacunar infarcts. There is a small right mastoid effusion. IMPRESSION: No acute intracranial abnormality seen. Old left parietal lobe infarct. Old right superior cerebellar infarct. Old bilateral basal ganglia lacunar infarct. Small right mastoid effusion. Labs Test 09/06/25 16:42 09/06/25 16:21 09/06/25 13:39 09/06/25 12:19 Range/Units Urine Color Light-yellow Yellow Urine Clarity Clear Clear Urine pH 5.5 5.0-9.0 Urine Specific [place] 1.010 1.001-1.035 Urine Protein 1+ H Negative Urine Ketones Negative Negative Urine Blood Negative Negative /uL Urine Nitrite Negative Negative Urine Bilirubin Negative Negative Urine Urobilinogen Normal Negative mg/dL Urine Leukocyte Esterase 1+ Negative /uL Urine RBC <1 0 - 4 /hpf Urine Microscopic WBC 5 0-5 /HPF Urine Squamous Epithelial Cells Few <5 /hpf Urine Bacteria Few H None Seen /hpf Urine Glucose Normal Normal mg/dL Influenza Type A Antigen Negative Negative Influenza Type B Antigen Negative Negative SARS-CoV-2 Antigen (Rapid) Negative NEGATIVE Troponin I High Sensitivity 11 </=34 ng/L White Blood Count 7.9 4.4-10.8 10^3/uL Red Blood Count 3.62 L 4.0-5.20 10^6/uL Hemoglobin 11.6 L 12.2-16.2 g/dL Hematocrit 34.2 L 36.0-46.0 % Mean Corpuscular Volume 94.6 80.0-100.0 fL Mean Corpuscular Hemoglobin 32.1 H 28.0-32.0 pg Mean Corpuscular Hemoglobin Concent 34.0 32.0-36.0 g/dL Red Cell Distribution Width 14.5 H 11.8-14.3 % Platelet Count 286 140-450 10^3/uL Mean Platelet Volume 8.7 6.9-10.8 fL Neutrophils (%) (Auto) 51.8 37.0-80.0 % Lymphocytes (%) (Auto) 31.0 10.0-50.0 % Monocytes (%) (Auto) 12.3 H 0.0-12.0 % Eosinophils (%) (Auto) 4.5 0.0-7.0 % Basophils (%) (Auto) 0.4 0.0-2.0 % Neutrophils # (Auto) 4.1 1.6-8.6 10 ^3/uL Lymphocytes # (Auto) 2.4 0.4-5.4 10 ^3/uL Monocytes # (Auto) 1.0 0-1.3 10 ^3/uL Eosinophils # (Auto) 0.4 0-0.8 10 ^3/uL Basophils # (Auto) 0 0-0.2 10 ^3/uL Nucleated Red Blood Cells 0.0 % Sodium Level 143 136-145 mmol/L Potassium Level 5.0 3.5-5.1 mmol/L Chloride Level 111 H 98-107 mmol/L Carbon Dioxide Level 23 20-31 mmol/L Anion Gap 9 5-15 Blood Urea Nitrogen 23 9-23 mg/dL Creatinine 1.65 H 0.550-1.02 mg/dL Glomerular Filtration Rate Calc 31 >90 mL/min BUN/Creatinine Ratio 13.9 10.0-20.0 Serum Glucose 79 74-106 mg/dL Lactic Acid Level 2.0 0.4-2.0 mmol/L Calcium Level 8.8 8.7-10.4 mg/dL B-Type Natriuretic Peptide 579.44 0-100 pg/mL POC Glucose 106 70-106 mg/dl SEPSIS Sepsis Screen Date sepsis recognized/suspect: Sep 06, 2025 Time Sepsis recognized/suspect: 1154 Recent Procedure: No On Antibiotic Therapy: No Respiratory Rate >20: No Heart Rate >90: No Temp<36 C (96.8 F) or >38.3 C: No SBP <90 or MAP <65 mmHG: No New Acute Mental Status Change: No Is the patient on CPAP, BIPAP,: No Physician Orders Meclizine Tablet (Antivert Tablet) (09/06/25 19:15) Atorvastatin (Lipitor) (09/06/25 22:00) Amlodipine Tablet (Norvasc Tablet) (09/07/25 10:00) Apixaban (Eliquis) (09/06/25 22:00) Metoprolol Xl Succinate (Toprol Xl) (09/07/25 10:00) Losartan Tablet (Cozaar Tablet) (09/07/25 10:00) Ceftriaxone 1gm/50ml (Rocephin) (09/07/25 09:00) Brain Head Wo Contrast (09/06/25 19:13) Basic Metabolic Panel (09/07/25 04:00) Renal Standard(2gna,3gk,Lopho) (09/07/25 Breakfast) Ondansetron Hcl (Zofran) (09/06/25 19:15) Echo 2d Mode Cardiac Dop (09/06/25 19:13) Condition: Stable (09/06/25 19:13) Acetaminophen Tablet (Tylenol Tablet) (09/06/25 19:15) Bedrest With Bathroom Privileg (09/06/25 19:13) Admit (09/06/25 21:26) Clonidine Hcl Tablet (Catapres Tablet) (09/06/25 21:30) Vital Signs Date Time Temp Pulse Resp B/P (MAP) Pulse Ox O2 Delivery O2 Flow Rate FiO2 09/06/25 20:03 98.3 58 19 167/72 (103) 100 98.3 09/06/25 15:16 97.8 67 18 138/63 (88) 98 97.8 Laboratory Tests Test 09/06/25 13:39 Lactic Acid Level 2.0 mmol/L (0.4-2.0) White Blood Count 7.9 10^3/uL (4.4-10.8) Medications Medications Dose Ordered Sig/Keven Route Start Time Stop Time Status Last Admin Dose Admin Sodium Chloride 1,000 ml @ 1,000 mls/hr Q1H ONCE IV 09/06/25 13:00 09/06/25 13:59 DC 09/06/25 13:40 1,000 MLS/HR Assessment/Plan Assessment/Plan Assessment Hypertensive crisis Generalized weakness History of CVA UTI CHF Plan Admit the patient to [facility] to the hospitalist Echocardiogram pending Resume home medications As needed antihypertensives Continue treatment per orders. Plan discussed with: Patient My Orders Orders - YOSI CHIU Procedure Category Date Status Time Meclizine Tablet PHA 09/06/25 In Process (Antivert Tablet) 19:15 Atorvastatin (Lipitor) PHA 09/06/25 In Process 22:00 Amlodipine Tablet PHA 09/07/25 In Process (Norvasc Tablet) 10:00 Apixaban (Eliquis) PHA 09/06/25 Logged 22:00 Metoprolol Xl PHA 09/07/25 In Process Succinate (Toprol Xl) 10:00 Losartan Tablet PHA 09/07/25 In Process (Cozaar Tablet) 10:00 Ceftriaxone 1gm/50ml PHA 09/07/25 In Process (Rocephin) 09:00 Brain Head Wo Contrast MRI 09/06/25 Logged 19:13 Basic Metabolic Panel LAB 09/07/25 Verified 04:00 Renal DIET 09/07/25 Transmitted Standard(2gna,3gk,Lopho) Breakfast Ondansetron Hcl PHA 09/06/25 In Process (Zofran) 19:15 Echo 2d Mode Cardiac US 09/06/25 Logged DOP 19:13 Condition: Stable CATHIE 09/06/25 In Process 19:13 Acetaminophen Tablet PHA 09/06/25 In Process (Tylenol Tablet) 19:15 Bedrest With Bathroom CATHIE 09/06/25 In Process Privileg 19:13 Admit ADMIT 09/06/25 Transmitted 21:26 Clonidine Hcl Tablet PHA 09/06/25 In Process (Catapres Tablet) 21:30 Date of Service: Sep 06, 2025 Billing Provider: YOSI CHIU Common Visit Codes: [id number] INP/OBS CARE (HIGH) YOSI CHIU Sep 06, 2025 21:39
[2025-09-06 22:05] VITALS: BP 196/114; PULSE 62; RESP 20; TEMP 97.7; O2SAT 100
[2025-09-07] VITALS (8 sets, daily range): BP systolic 156–195; BP diastolic 58–98; PULSE 55–70; RESP 16–20; TEMP 97.4–98.5; O2SAT 86–100
[2025-09-07] MEDS: ATORVASTATIN 20 MG TAB PO SCH (00:25)
[2025-09-07] MEDS: APIXABAN 2.5 MG TAB PO SCH (00:26)
[2025-09-07] MEDS ORDERED: LOSA-534 PO (03:47)
[2025-09-07] MEDS ORDERED: METO-289 PO (03:47)
[2025-09-07 06:45] LABS: Potassium 5.0 mmol/L (3.5-5.1); Sodium 143 mmol/L (136-145)
[2025-09-07 06:47] LABS: Anion Gap 7 (5-15); Calcium 9.1 mg/dL (8.7-10.4); Carbon Dioxide 22 mmol/L (20-31)
[2025-09-07 06:48] LABS: Chloride 114 mmol/L (98-107)
[2025-09-07 06:52] LABS: BUN/Creatinine Ratio 10.1 (10.0-20.0); Blood Urea Nitrogen 15 mg/dL (9-23); Glucose 88 mg/dL (74-106)
[2025-09-07] MEDS: FUROSEMIDE 40 MG TAB PO SCH (08:47)
[2025-09-07] MEDS: METOPROLOL SUCCINATE XL 50 MG TAB PO SCH (08:49)
[2025-09-07] MEDS ORDERED: LOSARTAN POTASSIUM 50 MG TAB PO SCH (10:00)
[2025-09-07] MEDS ORDERED: METOPROLOL SUCCINATE XL 50 MG TAB PO SCH (10:00)
[2025-09-07] MEDS: LOSARTAN POTASSIUM 50 MG TAB PO SCH (10:47)
--- NOTE | 2025-09-07 10:54 | DVH ---
CLINICAL INDICATION: Dizziness COMPARISON: CT HEAD WITHOUT CONTRAST on DOS: 09/06/25 TECHNIQUE: Multisequence multiplanar MRI images of the brain were obtained without contrast. FINDINGS: Motion artifact limits evaluation on some sequences. In particular, thin slice axial T2 weighted images through the region of the IACs are severely limited to motion artifact and are essentially nondiagnostic. No acute infarct or hemorrhage. No mass or midline shift. Encephalomalacia in the left frontoparietal region. Moderate of T2/FLAIR hyperintense signal in the periventricular and subcortical white matter are nonspecific, but most likely sequelae of chronic small vessel ischemic disease. Atrophic changes with dilation of the ventricles and widening of the sulci. Basal cisterns are patent. Cerebellum, brainstem, and midline structures are within normal limits. Mild mucosal thickening of the paranasal sinuses. There is fluid signal in the right mastoid air cells. Orbits are grossly unremarkable. IMPRESSION: 1. Motion limited study. 2. No evidence of acute intracranial abnormality. 3. 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 4. Fluid signal in the right mastoid air cells. Correlate clinically to exclude mastoiditis. 5. Additional nonacute findings as described above.
[2025-09-07] MEDS ORDERED: OMEP1CAP70 PO (14:09)
--- NOTE | 2025-09-07 15:20 | DVHPN2 ---
Subjective 84 year old admitted for dizziness and headache and high BP Changes from previous H/P or p: Changes Objective Vitals Vital Signs Date Time Temp Pulse Resp B/P (MAP) Pulse Ox O2 Delivery O2 Flow Rate FiO2 09/07/25 13:00 97.9 57 16 156/69 (98) 97 97.9 09/07/25 08:10 Nasal Cannula* 2 28 Intake/Output Intake and Output 09/07/25 07:00 Intake Total 1300 ml Balance 1300 ml Intake Oral 300 ml IV Total 1000 ml # Voids 1 General Appearance: Alert, Oriented X3, Cooperative, No acute distress Lungs: Clear to auscultation, Normal air movement Cardiovascular: Regular rate, Normal S1, Normal S2, No murmurs Abdomen: Normal bowel sounds, Soft, No tenderness Extremities: No edema Medications Current Medications Medications Dose Ordered Sig/Keven Route Start Time Stop Time Status Last Admin Dose Admin Meclizine HCl 25 mg Q6HPRN PRN PO 09/06/25 19:15 Atorvastatin Calcium 40 mg HS PO 09/06/25 22:00 09/07/25 00:25 40 MG Amlodipine Besylate 5 mg DAILY PO 09/07/25 10:00 09/07/25 08:48 5 MG Apixaban 2.5 mg BID PO 09/06/25 22:05 09/07/25 08:49 2.5 MG Metoprolol Succinate 50 mg DAILY PO 09/07/25 10:00 09/07/25 08:49 50 MG Ceftriaxone Sodium 50 ml @ 100 mls/hr DAILY@09 IV 09/07/25 09:00 09/07/25 08:46 100 MLS/HR Ondansetron HCl 4 mg Q4HP PRN IV 09/06/25 19:15 Acetaminophen 650 mg Q6HP PRN PO 09/06/25 19:15 Clonidine HCl 0.1 mg Q6HP PRN PO 09/06/25 21:30 09/07/25 00:26 0.1 MG Furosemide 40 mg DAILY PO 09/07/25 10:00 09/07/25 08:47 40 MG Losartan Potassium 100 mg DAILY PO 09/07/25 10:00 09/07/25 10:47 100 MG Laboratory Results Laboratory Tests 09/06/25 13:39 09/07/25 05:50 Chemistry Test 09/07/25 05:50 Calcium Level 9.1 mg/dL (8.7-10.4) Urinalysis Test 09/06/25 16:42 Urine Color Light-yellow (Yellow) Urine Clarity Clear (Clear) Urine pH 5.5 (5.0-9.0) Urine Specific [place] 1.010 (1.001-1.035) Urine Protein 1+ (Negative) H Urine Ketones Negative (Negative) Urine Blood Negative /uL (Negative) Urine Nitrite Negative (Negative) Urine Bilirubin Negative (Negative) Urine Urobilinogen Normal mg/dL (Negative) Urine Leukocyte Esterase 1+ /uL (Negative) Urine RBC <1 /hpf (0 - 4) Urine Microscopic WBC 5 /HPF (0-5) Urine Squamous Epithelial Cells Few /hpf (<5) Urine Bacteria Few /hpf (None Seen) H Urine Glucose Normal mg/dL (Normal) Microbiology Microbiology Date/Time Source Procedure Growth Status 09/06/25 16:42 Voided Urine Urine Culture - Preliminary Resulted 09/06/25 13:38 Blood Blood Culture - Preliminary NO GROWTH AFTER 24 HOURS OF INCUBATION. Resulted Assessment/Plan Assessment/Plan Headache and dizziness Uncontrolled HTN Acute mastoiditis Old CVA No new stroke HTN Mixed hyperlipidemia ?Afib CKD Rule out CHF PLAN: Echo Lower Eliquis to 2.5 mg bid MRI: No acute CVA Increase Losartan to 100 mg qd Metoprolol XL 50 mg qd Amlodipine 5 mg qd Rocephin IV Lipitor Monitor Discussed with family at the bedside Plan discussed with: Patient, Daughter My Orders Orders - KIKA NETTLES MD Procedure Category Date Status Time Metoprolol Xl PHA 09/07/25 In Process Succinate (Toprol Xl) 10:00 Losartan Tablet PHA 09/07/25 In Process (Cozaar Tablet) 10:00 Date of Service: Sep 07, 2025 Billing Provider: KIKA NETTLES MD Common Visit Codes: NOT BILLABLE KIKA NETTLES MD Sep 07, 2025 15:20
--- NOTE | 2025-09-07 16:26 | ECG ---
[facility] Test Date: 2025-09-06 Test Time: 12:17:43 Pat Name: MYRON CHOUDHURY Department: ED Room: 0251 A Gender: F [employer] Fuse: IRMA : 1940 Requested By: REBECA CHANCE Order Number: [id number] Reading MD: Lamonte Ram Measurements Intervals [place] Rate: 61 P: 50 NH: 194 QRS: -35 QRSD: 101 T: 60 QT: 488 QTc: 492 Interpretive Statements Sinus rhythm Inferior infarct, old Electronically Signed On 09-08-2025 20:03:14 PST by Lamonte Ram Please click the below link to view image of tracing.
[2025-09-08] VITALS (7 sets, daily range): BP systolic 133–177; BP diastolic 57–78; PULSE 52–78; RESP 16–18; TEMP 97.6–98.4; O2SAT 95–100
[2025-09-08 06:06] LABS: Triglycerides 63 mg/dL (< 150)
[2025-09-08 06:09] LABS: Cholesterol 92 mg/dL (< 200)
[2025-09-08 06:24] LABS: HDL Cholesterol 36 mg/dL (40-59)
--- NOTE | 2025-09-08 09:49 | DVHPN2 ---
Subjective Better No headache or dizziness She has mastoiditis Blood pressure is still high MRI showed no stroke Echo is still pending Changes from previous H/P or p: Changes Objective Vitals Vital Signs Date Time Temp Pulse Resp B/P (MAP) Pulse Ox O2 Delivery O2 Flow Rate FiO2 09/08/25 09:41 152/48 09/08/25 09:38 58 09/08/25 08:56 97.9 18 97 97.9 09/08/25 08:00 Nasal Cannula* 2 28 Intake/Output Intake and Output 09/08/25 07:00 Intake Total 650 ml Balance 650 ml Intake Oral 650 ml # Voids 5 General Appearance: Alert, Oriented X3, Cooperative, No acute distress Lungs: Clear to auscultation, Normal air movement Cardiovascular: Regular rate, Normal S1, Normal S2, No murmurs Abdomen: Normal bowel sounds, Soft, No tenderness Extremities: No edema Medications Current Medications Medications Dose Ordered Sig/Keven Route Start Time Stop Time Status Last Admin Dose Admin Meclizine HCl 25 mg Q6HPRN PRN PO 09/06/25 19:15 Atorvastatin Calcium 40 mg HS PO 09/06/25 22:00 09/07/25 22:03 40 MG Apixaban 2.5 mg BID PO 09/06/25 22:05 09/08/25 09:36 2.5 MG Metoprolol Succinate 50 mg DAILY PO 09/07/25 10:00 09/07/25 08:49 50 MG Ceftriaxone Sodium 50 ml @ 100 mls/hr DAILY@09 IV 09/07/25 09:00 09/08/25 09:36 100 MLS/HR Ondansetron HCl 4 mg Q4HP PRN IV 09/06/25 19:15 Acetaminophen 650 mg Q6HP PRN PO 09/06/25 19:15 Clonidine HCl 0.1 mg Q6HP PRN PO 09/06/25 21:30 09/07/25 17:30 0.1 MG Furosemide 40 mg DAILY PO 09/07/25 10:00 09/08/25 09:41 40 MG Losartan Potassium 100 mg DAILY PO 09/07/25 10:00 09/08/25 09:37 100 MG Amlodipine Besylate 10 mg DAILY PO 09/08/25 10:00 09/08/25 09:37 10 MG Laboratory Results Laboratory Tests 09/06/25 13:39 09/07/25 05:50 Lipid panel Test 09/08/25 05:13 Cholesterol Level 92 mg/dL (< 200) HDL Cholesterol 36 mg/dL (40-59) L Triglycerides Level 63 mg/dL (< 150) Urinalysis Test 09/06/25 16:42 Urine Color Light-yellow (Yellow) Urine Clarity Clear (Clear) Urine pH 5.5 (5.0-9.0) Urine Specific [place] 1.010 (1.001-1.035) Urine Protein 1+ (Negative) H Urine Ketones Negative (Negative) Urine Blood Negative /uL (Negative) Urine Nitrite Negative (Negative) Urine Bilirubin Negative (Negative) Urine Urobilinogen Normal mg/dL (Negative) Urine Leukocyte Esterase 1+ /uL (Negative) Urine RBC <1 /hpf (0 - 4) Urine Microscopic WBC 5 /HPF (0-5) Urine Squamous Epithelial Cells Few /hpf (<5) Urine Bacteria Few /hpf (None Seen) H Urine Glucose Normal mg/dL (Normal) Microbiology Microbiology Date/Time Source Procedure Growth Status 09/06/25 16:42 Voided Urine Urine Culture - Preliminary Resulted 09/06/25 13:38 Blood Blood Culture - Preliminary NO GROWTH AFTER 24 HOURS OF INCUBATION. Resulted Assessment/Plan Assessment/Plan Headache and dizziness Uncontrolled HTN Acute mastoiditis Old CVA No new stroke HTN Mixed hyperlipidemia ?Afib CKD Rule out CHF PLAN: Echo Lower Eliquis to 2.5 mg bid MRI: No acute CVA Increase Losartan to 100 mg qd Metoprolol XL 50 mg qd Amlodipine 5 mg qd Rocephin IV Lipitor Monitor Discussed with family at the bedside 09/08/2025: Echo is still pending MRI no stroke Hypertension: Increase amlodipine to 10 mg daily Bradycardia: Decrease metoprolol succinate to 25 mg daily Continue losartan 100 mg daily Acute mastoiditis: Rocephin Old stroke Eliquis and Lipitor Questionable history of AFib: Eliquis Physical therapy evaluation Discussed with the son at the bedside Plan discussed with: Patient, Son My Orders Orders - KIKA NETTLES MD Procedure Category Date Status Time Amlodipine Tablet PHA 09/08/25 In Process (Norvasc Tablet) 10:00 Date of Service: Sep 08, 2025 Billing Provider: KIKA NETTLES MD Common Visit Codes: NOT BILLABLE KIKA NETTLES MD Sep 08, 2025 09:49
[2025-09-08] MEDS: METOPROLOL SUCCINATE XL 50 MG TAB PO SCH (10:59)
--- NOTE | 2025-09-08 16:05 | DVHSR ---
APPROVED REPORT EXAM: Two-dimensional and M-mode echocardiogram with Doppler and color Doppler. Blood Pressure: 163/77 mmHg INDICATION Dyspnea Heart Failure EF RISK FACTORS Height: 5'1", Weight: 154 DIMENSIONS LVDd 4.8 (3.8-5.7cm) LA (2D) 5.3 (1.9-4.0cm) Aortic Root 3.1 (2.0-3.7cm) LVDs 2.7 (2.5-4.0cm) LA (MM) (1.9-4.0cm) Aortic Cusp Exc 1.1 (1.5-2.0cm) EF (%) 75.0 (55-70%) Rt. Atrium 4.2 (1.9-4.0cm) Asc. Aorta 2.8 cm IVSd 1.5 (0.7-1.1cm) RV (D) 4.2 (1.8-2.4cm) PWd 1.0 (0.7-1.1cm) Mitral Valve Mitral Mitral Stenosis E wave 1.41m/s MV Mean GR. 5mmHg A wave 1.48m/s MV Peak GR. 11mmHg E/A ratio 1.0 2D MVA cm2 DECEL Time 241ms PRESS 1/2 Time ms Aortic Valve Aortic Valve Aortic Stenosis V1 1.37m/s AO Mean GR. 13mmHg V2 2.66m/s AO Peak GR. 29mmHg LVOT Diameter 2.0 (1.8-2.4cm) Doppler JESSICA 1.62cm2 AI P 1/2 Time 446.88ms Tricuspid Valve TR Velocity 3.35m/s RVSP 53mmHg Other Information Quality : Technically Limited Rhythm : Conclusion LVEF normal at 60-65%, mild to moderate left ventricular hypertrophy. Moderate diastolic dysfunction Right ventricle size and function normal Left atrium mdoerately dilated, right atrium mild dilated Moderate aortic stenosis (Vmax 3.1 m/s, JESSICA by vti 1.2 cm) Moderate mitral annular calcification Moderate pulmonary hypertension. RSVP estimated at 50-55mmgh
[2025-09-09 01:00] VITALS: BP 130/60; PULSE 54; RESP 17; TEMP 97.6; O2SAT 96
[2025-09-09 05:00] VITALS: BP 139/58; PULSE 58; RESP 17; TEMP 98.1; O2SAT 96
[2025-09-09 08:00] VITALS: PULSE 62; RESP 18; O2SAT 99
[2025-09-09 09:00] VITALS: BP 132/60; PULSE 60; RESP 18; TEMP 98.1; O2SAT 99
[2025-09-09] MEDS ORDERED: AMLO1TAB23 PO (10:28)
[2025-09-09] MEDS ORDERED: APIX2.5T PO (10:28)
[2025-09-09] MEDS ORDERED: AUG875T PO (10:28)
[2025-09-09] MEDS ORDERED: LOSA-535 PO (10:28)
[2025-09-09] MEDS ORDERED: METO25TA36 PO (10:28)
--- NOTE | 2025-09-09 10:30 | DVHDS2 ---
Discharge Summary Date of Admission Sep 06, 2025 at 19:13 Date of Discharge: Sep 09, 2025 Labs/Diagnostic Data: Laboratory Results Test 09/08/25 05:13 09/07/25 05:50 09/06/25 16:42 09/06/25 16:21 Triglycerides Level 63 mg/dL (< 150) Cholesterol Level 92 mg/dL (< 200) LDL Cholesterol 41 mg/dL (< 100) HDL Cholesterol 36 mg/dL (40-59) Sodium Level 143 mmol/L (136-145) Potassium Level 5.0 mmol/L (3.5-5.1) Chloride Level 114 mmol/L (98-107) Carbon Dioxide Level 22 mmol/L (20-31) Anion Gap 7 (5-15) Blood Urea Nitrogen 15 mg/dL (9-23) Creatinine 1.49 mg/dL (0.550-1.02) Glomerular Filtration Rate Calc 35 mL/min (>90) BUN/Creatinine Ratio 10.1 (10.0-20.0) Serum Glucose 88 mg/dL (74-106) Calcium Level 9.1 mg/dL (8.7-10.4) Urine Color Light-yellow (Yellow) Urine Clarity Clear (Clear) Urine pH 5.5 (5.0-9.0) Urine Specific [place] 1.010 (1.001-1.035) Urine Protein 1+ (Negative) Urine Ketones Negative (Negative) Urine Blood Negative /uL (Negative) Urine Nitrite Negative (Negative) Urine Bilirubin Negative (Negative) Urine Urobilinogen Normal mg/dL (Negative) Urine Leukocyte Esterase 1+ /uL (Negative) Urine RBC <1 /hpf (0 - 4) Urine Microscopic WBC 5 /HPF (0-5) Urine Squamous Epithelial Cells Few /hpf (<5) Urine Bacteria Few /hpf (None Seen) Urine Glucose Normal mg/dL (Normal) Influenza Type A Antigen Negative (Negative) Influenza Type B Antigen Negative (Negative) SARS-CoV-2 Antigen (Rapid) Negative (NEGATIVE) Troponin I High Sensitivity 11 ng/L (</=34) Test 09/06/25 13:39 09/06/25 12:19 White Blood Count 7.9 10^3/uL (4.4-10.8) Red Blood Count 3.62 10^6/uL (4.0-5.20) Hemoglobin 11.6 g/dL (12.2-16.2) Hematocrit 34.2 % (36.0-46.0) Mean Corpuscular Volume 94.6 fL (80.0-100.0) Mean Corpuscular Hemoglobin 32.1 pg (28.0-32.0) Mean Corpuscular Hemoglobin Concent 34.0 g/dL (32.0-36.0) Red Cell Distribution Width 14.5 % (11.8-14.3) Platelet Count 286 10^3/uL (140-450) Mean Platelet Volume 8.7 fL (6.9-10.8) Neutrophils (%) (Auto) 51.8 % (37.0-80.0) Lymphocytes (%) (Auto) 31.0 % (10.0-50.0) Monocytes (%) (Auto) 12.3 % (0.0-12.0) Eosinophils (%) (Auto) 4.5 % (0.0-7.0) Basophils (%) (Auto) 0.4 % (0.0-2.0) Neutrophils # (Auto) 4.1 10 ^3/uL (1.6-8.6) Lymphocytes # (Auto) 2.4 10 ^3/uL (0.4-5.4) Monocytes # (Auto) 1.0 10 ^3/uL (0-1.3) Eosinophils # (Auto) 0.4 10 ^3/uL (0-0.8) Basophils # (Auto) 0 10 ^3/uL (0-0.2) Nucleated Red Blood Cells 0.0 % Lactic Acid Level 2.0 mmol/L (0.4-2.0) B-Type Natriuretic Peptide 579.44 pg/mL (0-100) POC Glucose 106 mg/dl (70-106) Other Laboratory Tests 09/07/25 05:50 09/06/25 13:39 Brief Hx & Hospital Course: Final diagnoses: Headache and dizziness Uncontrolled HTN Acute mastoiditis Old CVA No new stroke HTN Mixed hyperlipidemia ?Afib, family is unsure CKD Heart failure was ruled out 84-year-old female who was admitted for headache and dizziness and elevated blood pressure and acute mastoiditis CT scan of the head and MRI showed no acute stroke She was given Rocephin IV for the mastoiditis Eliquis was decreased to 2.5 mg twice a day Kidney function remained stable Echocardiogram showed an ejection fraction of 60-65% Her medications were adjusted because of bradycardia, Toprol-XL was dropped to 25 mg daily, amlodipine increased to 10 mg daily Losartan increased to 100 mg daily The patient is asymptomatic today She can be discharged home Amlodipine 10 mg daily Losartan 100 mg daily Toprol-XL 25 mg daily Augmentin for 7 days Decrease Eliquis to 2.5 mg b.i.d. due to the patient's age of 84 and creatinine is above 1.5 Follow up with her primary care physician as soon as possible Condition at Discharge: Stable Final Diagnosis/Problems List Headache and dizziness Uncontrolled HTN Acute mastoiditis Old CVA No new stroke HTN Mixed hyperlipidemia ?Afib CKD Rule out CHF Discharge Disposition: Home SNF Discharge Will this Physician continue t: No Discharge Instruct/Medications Scheduled Alendronate Sodium (Alendronate Sodium), 1 TAB PO QWEEKLY, (Reported) Amlodipine Besylate (Amlodipine Besylate), 5 MG PO DAILY, (Reported) Apixaban Base (Eliquis), 5 MG PO BID, (Reported) Atorvastatin Calcium (Atorvastatin Calcium), 40 MG PO DAILY, (Reported) Citalopram Hydrobromide (Citalopram Hydrobromide), 1 TAB PO DAILY, (Reported) Losartan Potassium (Losartan Potassium), 1 TAB PO DAILY, (Reported) Metoprolol Succinate (Metoprolol Succinate Er), 1 TAB PO DAILY, (Reported) Omeprazole (Omeprazole Dr), 1 CAP PO DAILY, (Reported) Discontinued Medications Omeprazole Magnesium (Omeprazole), 20 MG PO, (Reported) Discontinued Reason: Prescription changed Discharge Statement: "Patient was advised to return to the ER or call 911 if any headaches, dizziness, shortness of breath, chest pain, abdominal pain, bleeding, fevers, or worsening of medical condition. Patient was counseled about treatment plan, medications, possible side effects, patientverbalized understanding. All questions were answered to the best of my ability. This discharge took greater then 30 minutes in planning, reviewing documentation, counseling the patient, and discussing with other team members." ASSESSMENT ASSESSMENT Assessment Date of Service: Sep 09, 2025 Billing Provider: KIKA NETTLES MD Common Visit Codes: NOT BILLABLE KIKA NETTLES MD Sep 09, 2025 10:30
[2025-09-09 11:47] VITALS: BP 132/60; PULSE 62; TEMP 36.7
== END 2025-09-09 12:40 | disposition home or self-care (01) | DRG 291 ==
LOC: ER 11:50 → OVERFLOW 19:13 → EAST 22:04
PROVIDERS: ADMIT Internal Medicine Geriatric Medicine; ATTEND Internal Medicine Geriatric Medicine
DX: I13.0 Hypertensive heart and chronic kidney disease with heart failure and stage 1 through stage 4 chronic kidney disease, or unspecified chronic kidney disease (principal); I50.31 Acute diastolic (congestive) heart failure; H70.003 Acute mastoiditis without complications, bilateral; N39.0 Urinary tract infection, site not specified; I16.9 Hypertensive crisis, unspecified; N18.9 Chronic kidney disease, unspecified; E78.2 Mixed hyperlipidemia; Z20.822 Contact with and (suspected) exposure to COVID-19; I48.91 Unspecified atrial fibrillation; Z86.73 Personal history of transient ischemic attack (TIA), and cerebral infarction without residual deficits; Z90.49 Acquired absence of other specified parts of digestive tract; Z79.899 Other long term (current) drug therapy
CPT/HCPCS: 36415; 70450; 70551; 71045; 80048; 80061; 81001; 82962; 83605; 83880; 84484; 85025; 87040; 87086; 87426; 87804; 93005; 93306; 96360; 97163; 99291; G0378